=== PATIENT | female | born 1970 | race Caucasian/White ===

== ENCOUNTER 2018-10-20 12:51 | Emergency (ER) | payer MEDICAID ==
[~2018-10-20] VITALS: Ht 160 cm; Wt 65.0 kg
[2018-10-20 13:00] VITALS: BP 140/68; PULSE 85; RESP 18; Ht 160 cm; Wt 65.0 kg
--- NOTE | 2018-10-20 13:53 | ERD ---
ER Documentation Chief Complaint Chief Complaint LEFT ARM/HAND PAIN S/W FALL X6 DAYS AGO HPI 48-year-old female, previously healthy, right-handed, presents the emergency department, complaining of left upper extremity pain after sustaining a ground level fall 6 days ago. The patient slipped over the wet floor, landing on her left upper extremity. No head trauma, no loss of consciousness. The pain is constant, 7/10, associated with decreased range of motion. No medications taking, the patient states that she prefers not using medications. ROS All systems reviewed and are negative except as per history of present illness. Medications Home Meds Active Scripts Ibuprofen* (Motrin*) 400 Mg Tab, 400 MG PO Q8, #15 TAB Prov:ALEM MACIEL MD 10/20/18 Allergies Allergies: Coded Allergies: No Known Allergy (Unverified , 10/20/18) PMhx/Soc History of Surgery: No Anesthesia Reaction: No Hx Neurological Disorder: No Hx Respiratory Disorders: No Hx Cardiac Disorders: No Hx Miscellaneous Medical Probl: No Hx Alcohol Use: No Hx Substance Use: No Hx Tobacco Use: No Smoking Status: Never smoker Physical Exam Vitals Vital Signs Date Temp Pulse Resp B/P (MAP) Pulse Ox O2 O2 Flow FiO2 Time Delivery Rate 10/20/18 99.0 85 18 140/68 98 13:00 (92) Physical Exam Const: No acute distress Head: Atraumatic Eyes: Normal Conjunctiva ENT: Normal External Ears, Nose and Mouth. Neck: Full range of motion. No meningismus. Resp: Clear to auscultation bilaterally Cardio: Regular rate and rhythm, no murmurs Abd: Soft, non tender, non distended. Normal bowel sounds Skin: No petechiae or rashes Back: No midline or flank tenderness Ext: Left upper extremity: Tenderness to palpation with edema over the dorsum of the hand, distal forearm and elbow. Distal neurovascular exam intact. Decreased range of motion due to pain. Neur: Awake and alert Psych: Normal Mood and Affect Procedures/MDM Differential diagnosis include but not limited to: Soft tissue contusion, sprain/strain, muscle spasm, fracture. Neurovascular exam grossly intact. no clinical findings suggestive of compartment syndrome. Physical examination and clinical presentation consistent most likely with [facility] an[facility] fall with left upper arm soft tissue contusion. During the ED course the patient remained stable, without complaints. Results and clinical impression discussed with patient who agrees with management. The patient is stable to be treated outpatient and will be discharged home with recommendations and close monitoring The patient was instructed to follow up with the primary care provider in the next 48h. If symptoms persist, worsen or new symptoms develop, then patient should return to the ED immediately. Instructions explained and given to patient with acknowledgment and demonstrated understanding. Disclaimer: Inadvertent spelling and grammatical errors are likely due to EHR/dictation software use and do not reflect on the overall quality of patient care. Also, please note that the electronic time recorded on this note does not necessarily reflect the actual time of the patient encounter. Departure Diagnosis: Primary Impression: Fall with no significant injury Additional Impression: Contusion of left arm Condition: Stable Patient Instructions: Contusion, Upper Extremity (Child) Additional Instructions: Muchas rosalina por [facility] para fay servicio. Esperamos que en fay visita a la sally de emergencia fay problema medico haya sido solucionado y que se sienta mucho mejor. Para estar seguros que fay mejoria sigue en proceso, le pedimos el favor de hacer reno yanet de seguimiento medico con fay doctor primario en los proximos 2-4 samaniego. Lleve con usted estos documentos y las medicinas recetadas. Si shi sintomas empeoran, NO SE ESPERE, por favor regrese a sally de emergencia INMEDIATAMENTE. En betty que usted no tenga un mdico de atencin primaria: Llame al mdico o clnica comunitaria de referencia que aparece abajo quin las horas de consultorio para hacer reno yanet para que le vean. CLINICAS: [facility] [phone] [facility] [phone] [facility] [phone] [facility] [phone] [facility] [phone] [facility] [phone] ALEM YODER MD Oct 20, 2018 13:53
[2018-10-20] MEDS ORDERED: IBUP-1561 PO (14:48)
== END 2018-10-20 15:10 | disposition home or self-care (01) ==
LOC: FTE 12:51
DX: S40.022A Contusion of left upper arm, initial encounter (principal); W01.0XXA Fall on same level from slipping, tripping and stumbling without subsequent striking against object, initial encounter; Y92.9 Unspecified place or not applicable
CPT/HCPCS: 73090; 99283